=== PATIENT | female | born 1955 | race Caucasian/White ===

== ENCOUNTER 2018-12-04 10:27 | Outpatient (CLI) | payer OTHER ==
[2018-12-04 11:38] LABS: WHITE BLOOD COUNT 6.9 x10^3/uL (4.8-10.8)
[2018-12-04 11:39] LABS: BASOPHILS % (AUTO) 0.7 %; EOSINOPHILS # (AUTO) 0.1 10^3/uL (0.0-0.7); EOSINOPHILS % (AUTO) 1.7 %; HGB - HEMOGLOBIN 14.1 g/dL (12.0-16.0); LYMPHOCYTES # (AUTO) 3.1 10^3/uL (1.5-3.5); LYMPHOCYTES % (AUTO) 45.4 %; MEAN CORPUSCULAR HEMOGLOBIN 34.1 pg (27.0-31.0); MEAN CORPUSCULAR HGB CONC 34.7 g/dL (32.0-36.0); MEAN CORPUSCULAR VOLUME 98.4 fL (81.0-99.0); MEAN PLATELET VOLUME 6.8 fL (7.9-10.8); MONOCYTES # (AUTO) 0.7 10^3/uL (0.0-1.0); MONOCYTES % (AUTO) 9.6 %; NEUTROPHILS # (AUTO) 2.9 10^3/uL (1.5-6.6); NEUTROPHILS % (AUTO) 42.6 %; PLT - PLATELET COUNT 250 10^3/uL (130-450); RED BLOOD COUNT 4.13 10^6/uL (4.20-5.40)
[2018-12-04 12:03] LABS: ALBUMIN 4.5 g/dL (3.2-5.5); ALBUMIN/GLOBULIN RATIO 1.5 (1.0-2.2); ALKALINE PHOSPHATASE 56 IU/L (42-121); ALT ALANINE AMINOTRANSFERASE 22 IU/L (10-60); AST ASPARTATE AMINOTRANSFERASE 20 IU/L (10-42); BILIRUBIN,TOTAL 0.8 mg/dL (0.2-1.0); BUN - BLOOD UREA NITROGEN 18 mg/dL (6-20); CALCIUM 9.8 mg/dL (8.5-10.3); CARBON DIOXIDE - CO2 25 mmol/L (21-32); CHLORIDE 100 mmol/L (101-111); CHOL/HDL RATIO 4.8 (<4.4); CHOLESTEROL 240 mg/dL; CREATININE 0.9 mg/dL (0.4-1.0); GFR - MDRD 63 (>89); GLUCOSE 110 mg/dL (70-100); HDL CHOLESTEROL 50 mg/dL; LDL CHOLESTEROL,CALCULATED 144 mg/dL; LDL/HDL RATIO 2.9 (<4.4); SODIUM 139 mmol/L (135-145); TOTAL PROTEIN 7.6 g/dL (6.7-8.2); VLDL CHOLESTEROL 46 mg/dL
== END 2018-12-04 10:28 | disposition home or self-care (01) ==
LOC: LAB 10:27
PROVIDERS: ATTEND Nurse Practitioner
DX: Z13.228 Encounter for screening for other metabolic disorders (principal); Z13.29 Encounter for screening for other suspected endocrine disorder; Z13.220 Encounter for screening for lipoid disorders; I10 Essential (primary) hypertension
CPT/HCPCS: 36415; 80053; 80061; 83721; 84443; 85025

== ENCOUNTER 2020-11-11 15:14 | Outpatient (CLI) | payer MEDICARE, OTHER | END 2020-11-11 15:15 | disposition home or self-care (01) | LOC: COV 15:14 | PROVIDERS: ATTEND Surgery | DX: Z01.812 Encounter for preprocedural laboratory examination (principal); R13.10 Dysphagia, unspecified; R19.5 Other fecal abnormalities; Z20.822 Contact with and (suspected) exposure to COVID-19 ==

== ENCOUNTER 2020-11-16 08:19 | Day surgery (SDC) | payer MEDICARE, OTHER ==
[2020-11-16] MEDS ORDERED: LACTATED RINGERS 1,000 ML IV ONE ×2 (08:52→10:47)
[2020-11-16] MEDS ORDERED: BENZOCAINE/TETRACAINE/BUTAMBEN 20 GM ONE (09:27)
[2020-11-16] MEDS ORDERED: LIDO GARGLE 30 ML BOTTLE ONE (09:27)
[2020-11-16] MEDS ORDERED: MIDAZOLAM 2 MG/2 ML VIAL ONE ×3 (09:33→10:04)
[2020-11-16] MEDS ORDERED: fentaNYL 250 MCG/5 ML VIAL ONE (09:33)
[2020-11-16] MEDS ORDERED: ONDANSETRON 4 MG/2 ML VIAL ONE (09:34)
[2020-11-16] MEDS ORDERED: LIDO GARGLE 30 ML BOTTLE PO ONE (09:54)
[2020-11-16] MEDS ORDERED: BENZOCAINE/TETRACAINE/BUTAMBEN 20 GM TOP ONE (09:54)
[2020-11-16 11:14] VITALS: BP 113/73
== END 2020-11-16 08:20 | disposition home or self-care (01) ==
LOC: SDS 08:19
PROVIDERS: ATTEND Surgery
PROC: 0DBP8ZX Excision of Rectum, Via Natural or Artificial Opening Endoscopic, Diagnostic (ICD-10-PCS; principal; 2020-11-16 10:00)
DX: K62.1 Rectal polyp (principal); K57.30 Diverticulosis of large intestine without perforation or abscess without bleeding; K44.9 Diaphragmatic hernia without obstruction or gangrene; K22.8 Other specified diseases of esophagus; I10 Essential (primary) hypertension; M47.816 Spondylosis without myelopathy or radiculopathy, lumbar region
CPT/HCPCS: 43235; 45380; A9270; J3010; J7120

== ENCOUNTER 2021-03-17 13:52 | Outpatient (CLI) | payer MEDICARE, OTHER | END 2021-03-17 13:53 | disposition home or self-care (01) | LOC: COV 13:52 | PROVIDERS: ATTEND Nurse Practitioner Acute Care | DX: Z01.812 Encounter for preprocedural laboratory examination (principal); Z20.822 Contact with and (suspected) exposure to COVID-19 ==

== ENCOUNTER 2021-09-08 12:41 | Outpatient (CLI) | payer MEDICARE, OTHER ==
[2021-09-08 12:56] LABS: BASOPHILS # (AUTO) 0.1 10^3/uL (0.0-0.1); BASOPHILS % (AUTO) 1.1 %; EOSINOPHILS # (AUTO) 0.1 10^3/uL (0.0-0.7); EOSINOPHILS % (AUTO) 0.9 %; HCT - HEMATOCRIT 39.7 % (37.0-47.0); HGB - HEMOGLOBIN 14.1 g/dL (12.0-16.0); LYMPHOCYTES # (AUTO) 2.3 10^3/uL (1.5-3.5); LYMPHOCYTES % (AUTO) 40.5 %; MEAN CORPUSCULAR HEMOGLOBIN 34.6 pg (27.0-31.0); MEAN CORPUSCULAR HGB CONC 35.5 g/dL (32.0-36.0); MEAN CORPUSCULAR VOLUME 97.5 fL (81.0-99.0); MEAN PLATELET VOLUME 8.5 fL (7.9-10.8); MONOCYTES # (AUTO) 0.6 10^3/uL (0.0-1.0); MONOCYTES % (AUTO) 10.7 %; NEUTROPHILS # (AUTO) 2.6 10^3/uL (1.5-6.6); NEUTROPHILS % (AUTO) 46.6 %; PLT - PLATELET COUNT 228 10^3/uL (130-450); RED BLOOD COUNT 4.07 10^6/uL (4.20-5.40); RED CELL DISTRIBUTION WIDTH 13.3 % (12.0-15.0); WHITE BLOOD COUNT 5.6 x10^3/uL (4.8-10.8)
[2021-09-08 13:14] LABS: % IRON SATURATION 19 % (20-50); ALBUMIN 4.5 g/dL (3.2-5.5); ALBUMIN/GLOBULIN RATIO 1.5 (1.0-2.2); ALKALINE PHOSPHATASE 60 IU/L (42-121); ALT ALANINE AMINOTRANSFERASE 20 IU/L (10-60); AST ASPARTATE AMINOTRANSFERASE 23 IU/L (10-42); BILIRUBIN,TOTAL 0.6 mg/dL (0.2-1.0); BUN - BLOOD UREA NITROGEN 16 mg/dL (6-20); CALCIUM 9.7 mg/dL (8.5-10.3); CARBON DIOXIDE - CO2 27 mmol/L (21-32); CHLORIDE 99 mmol/L (101-111); CHOL/HDL RATIO 4.6 (<4.4); CHOLESTEROL 246 mg/dL; GFR - MDRD 55 (>89); GLUCOSE 109 mg/dL (70-100); HDL CHOLESTEROL 54 mg/dL; IRON 67 ug/dL (28-170); LDL CHOLESTEROL,CALCULATED 165 mg/dL; LDL/HDL RATIO 3.1 (<4.4); POTASSIUM 3.8 mmol/L (3.5-5.0); SODIUM 138 mmol/L (135-145); TOTAL IRON BINDING CAPACITY 358 ug/dL (250-450); TOTAL PROTEIN 7.6 g/dL (6.7-8.2); TRANSFERRIN 256 mg/dL (192-382); TRIGLYCERIDES 135 mg/dL; VLDL CHOLESTEROL 27 mg/dL
[2021-09-08 13:25] LABS: THYROID STIMULATING HORMONE 1.49 uIU/mL (0.34-5.60)
[2021-09-08 13:32] LABS: FERRITIN 97.1 ng/mL (11.0-306.8)
[2021-09-08 13:36] LABS: FOLATE 19.88 ng/mL (5.90 - >24.8)
== END 2021-09-08 12:42 | disposition home or self-care (01) ==
LOC: LAB 12:41
PROVIDERS: ATTEND Family Medicine
DX: D64.9 Anemia, unspecified (principal); Z78.0 Asymptomatic menopausal state; F41.8 Other specified anxiety disorders; M19.90 Unspecified osteoarthritis, unspecified site; I10 Essential (primary) hypertension
CPT/HCPCS: 36415; 80053; 80061; 82607; 82728; 82746; 83540; 83721; 84443; 84466; 85025

== ENCOUNTER 2023-09-12 11:23 | Outpatient (CLI) | payer MEDICARE, OTHER ==
[2023-09-12 11:52] LABS: BASOPHILS % (AUTO) 0.8 %; EOSINOPHILS % (AUTO) 0.8 %; HCT - HEMATOCRIT 37.5 % (37.0-47.0); HGB - HEMOGLOBIN 12.6 g/dL (12.0-16.0); LYMPHOCYTES # (AUTO) 1.9 10^3/uL (1.5-3.5); LYMPHOCYTES % (AUTO) 48.3 %; MEAN CORPUSCULAR HEMOGLOBIN 33.8 pg (27.0-31.0); MEAN CORPUSCULAR HGB CONC 33.6 g/dL (32.0-36.0); MEAN CORPUSCULAR VOLUME 100.5 fL (81.0-99.0); MEAN PLATELET VOLUME 8.7 fL (7.9-10.8); MONOCYTES # (AUTO) 0.4 10^3/uL (0.0-1.0); MONOCYTES % (AUTO) 10.2 %; NEUTROPHILS # (AUTO) 1.5 10^3/uL (1.5-6.6); NEUTROPHILS % (AUTO) 39.9 %; PLT - PLATELET COUNT 181 10^3/uL (130-450); RED BLOOD COUNT 3.73 10^6/uL (4.20-5.40); RED CELL DISTRIBUTION WIDTH 13.6 % (12.0-15.0); WHITE BLOOD COUNT 3.8 x10^3/uL (4.8-10.8)
[2023-09-12 12:12] LABS: ALBUMIN 4.2 g/dL (3.2-5.5); ALBUMIN/GLOBULIN RATIO 1.7 (1.0-2.2); ALKALINE PHOSPHATASE 48 IU/L (42-121); ALT ALANINE AMINOTRANSFERASE 16 IU/L (10-60); AST ASPARTATE AMINOTRANSFERASE 25 IU/L (10-42); BILIRUBIN,TOTAL 0.6 mg/dL (0.2-1.0); BUN - BLOOD UREA NITROGEN 17 mg/dL (6-20); CALCIUM 9.9 mg/dL (8.5-10.3); CARBON DIOXIDE - CO2 30 mmol/L (21-32); CHLORIDE 109 mmol/L (101-111); CHOL/HDL RATIO 3.9 (<4.4); CHOLESTEROL 182 mg/dL; CREATININE 0.8 mg/dL (0.6-1.3); GFR - MDRD 71 (>89); GLUCOSE 94 mg/dL (74-104); HDL CHOLESTEROL 47 mg/dL; LDL CHOLESTEROL,CALCULATED 104 mg/dL; LDL/HDL RATIO 2.2 (<4.4); SODIUM 142 mmol/L (135-145); TOTAL PROTEIN 6.7 g/dL (6.4-8.9); TRIGLYCERIDES 153 mg/dL (48-352); VLDL CHOLESTEROL 31 mg/dL
[2023-09-12 12:13] LABS: ESTIMATED AVERAGE GLUCOSE 77 mg/dL (70-100); HEMOGLOBIN A1c% 4.3 % (4.27-6.07)
[2023-09-12 12:20] LABS: THYROID STIMULATING HORMONE 1.56 uIU/mL (0.34-5.60)
== END 2023-09-12 11:24 | disposition home or self-care (01) ==
LOC: LAB 11:23
PROVIDERS: ATTEND Family Medicine
DX: I10 Essential (primary) hypertension (principal); K59.00 Constipation, unspecified; K44.9 Diaphragmatic hernia without obstruction or gangrene; M19.90 Unspecified osteoarthritis, unspecified site; R73.9 Hyperglycemia, unspecified
CPT/HCPCS: 36415; 80053; 80061; 83036; 83721; 84443; 85025

== ENCOUNTER 2024-03-01 18:55 | Emergency (ER) | payer MEDICARE, OTHER ==
--- NOTE | 2024-03-01 19:21 | ED Physician Documentation ---
History of Present Illness - Stated complaint Stated Complaint: L KNEE PX - Chief complaint Chief Complaint: Trauma Ext - Additonal information Additional information: Patient is a 68-year-old female presenting to the emergency department with left knee pain. Patient notes injury occurred earlier in January but now she has been trying to remain off of it until She was doing more walking today and when she returned home sitting on her couch and moved it suddenly she had severe excruciating pain. Per her it appears significantly more swollen. Patient has chronic knee problems she is unsure exactly but has never had surgery to bilateral knees. She has generalized osteoarthritis but does not take any medications other than hypertensive medications at home. She denies any numbness or tingling in her leg. She denies being fully extending or flexing her left knee due to significant pain and swelling. She did not take any pain medications before coming in but for the past few days has been taking naproxen.Patient notes earlier injury about 2-1/2 weeks ago occurred when she stepped out of the car and had sudden onset pain to her posterior left knee. She notes she was able to ambulate and did not come in for further evaluation at that time. PD PAST MEDICAL HISTORY - Past Medical History Past Medical History: Yes Cardiovascular: Hypertension - Past Surgical History Past Surgical History: Yes General: Hiatal hernia repair /[employer]: Breast reduction - Present Medications Home Medications: Ambulatory Orders Medication Instructions Recorded Confirmed Diclofenac Sodium [Voltaren 20 gm TP BID 7 Days #14 gm 03/01/24 Arthritis Pain] Lisinopril/Hydrochlorothiazide 1 each PO DAILY 03/01/24 03/01/24 [Zestoretic 20-12.5 mg Tablet] Meloxicam [Mobic] 7.5 mg PO BID 7 Days #14 tablet 03/01/24 - Allergies Allergies/Adverse Reactions: Allergies Allergy/AdvReac Type Severity Reaction Status Date / Time diphenhydramine Allergy Severe Rash Verified 03/01/24 18:59 [From Benadryl] ethylene oxide (gas) Allergy Severe Anaphylaxis Verified 03/01/24 18:59 iodine Allergy Intermediate Rash Verified 03/01/24 18:59 latex Allergy Intermediate Rash Verified 03/01/24 18:59 Penicillins Allergy Intermediate Rash Verified 03/01/24 18:59 - Social History Does the pt smoke?: No Smoking Status: Never smoker Does the pt drink ETOH?: No Does the pt have substance abuse?: No - Immunizations Immunizations are current?: Yes PD ED PE NORMAL - Vitals Vital signs reviewed: Yes - General General: Alert and oriented X 3 - HEENT HEENT: Atraumatic - Neck Neck: Supple, no meningeal sign - Cardiac Cardiac: RRR, No murmur, No gallop, No rub - Respiratory Respiratory: No respiratory distress, Clear bilaterally - Abdomen Abdomen: Normal bowel sounds, Soft, Non tender, Non distended - Female Female : Deferred - Derm Derm: Normal color, Other (No signs of abrasions burn wounds or erythema) - Extremities Extremities: No deformity, Other (Swelling noted to left knee with leg held in slight flexion. No significant erythema or warmth on examination compartments are soft and pulses are intact. Significantly decreased range of motion on examination of knee due to stiffness and pain and swelling. ) - Neuro Neuro: Alert and oriented X 3 Eye Opening: Spontaneous Motor: Obeys Commands Verbal: Oriented GCS Score: 15 Results - Vitals Vitals: Vital Signs - 24 hr 03/01/24 18:59 Temperature 36.5 C Heart Rate 90 Respiratory 16 Rate Blood Pressure 116/89 H O2 Saturation 10 L Oxygen O2 Source Room air - Rads (name of study) X-ray left knee Relevant Findings:: EMP independent interpretation of test PD Medical Decision Making - ED course Complexity details: reviewed old records, reviewed results ED course: Patient is a 68-year-old female presenting to the emergency department with left knee pain. Patient notes injury occurred earlier in January but now she has been trying to remain off of it until She was doing more walking today and when she returned home sitting on her couch and moved it suddenly she had severe excruciating pain. Per her it appears significantly more swollen. Normal cardiac lung sounds vital stable on arrival. Reproducible anterior left knee tenderness significant swelling and stiffness on examination. No obvious bruising erythema or warmth on examination. Pulses intact distally with sensation intact distally No displaced fractures. Moderate joint effusion. Internal derangement not excluded. Mild to moderate tricompartmental osteoarthritis. Kellgren-Gustavo scale of osteoarthritis: 2. Patient workup here in emergency department shows most likely ligament tear. Given concerning findings patient will be given orthopedic device for a knee immobilizer and held in flexion. Patient held at 10 degrees for most comfort and given walker. She has crutches at home and is agreeable with trying walker here. Instructed patient to elevate ice and rest. She was given meloxicam for swelling and pain control and told to hold off on naproxen and to try meloxicam for symptoms. Instructed patient to ice and elevate at home and given the follow-up number for orthopedics in the outpatient setting. Patient will call them on Saturday. She will return with any worsening pain swelling numbness tingling discoloration. Departure - Departure Disposition: , Self Care Clinical Impression: Effusion, left knee, Knee injury, Injury of lower leg Condition: Good Instructions: ED Meniscal Injury Knee Poss Follow-Up: GERARD KINNEY, [Physician No Access] - Comments: You are seen here in the emergency department for your left knee pain I suspect you most likely tore ligament and we given you a knee immobilizer and follow-up with orthopedics. Take anti-inflammatories as possible I have given you a walker please try to remain off of it or low weightbearing. Return with any discoloration worsening pain swelling numbness or tingling to your extremity. Take pain medications as prescribed to help with inflammation. Forms: PCP List
--- NOTE | 2024-03-01 19:55 | XRAY Report ---
PROCEDURE: Knee 4+V LT INDICATIONS: pain TECHNIQUE: 4 views of the knee(s) were acquired. COMPARISON: None. FINDINGS: Bones: No fractures or dislocations. No suspicious bony lesions. Tricompartmental joint space fer rowing with associated osteophytosis. Soft tissues: Moderate knee joint effusion. No suspicious soft tissue calcifications or masses. IMPRESSION: No displaced fractures. Moderate joint effusion. Internal derangement not excluded. Mild to moderate tricompartmental osteoarthritis. Kellgren-Gustavo scale of osteoarthritis: 2. Reviewed by: Ronald Avendaño MD on 03/01/2024 7:53 PM PDT Approved by: Ronald Avendaño MD on 03/01/2024 7:53 PM PDT Station ID: [id number]
[2024-03-01 21:33] VITALS: BP 136/96; O2SAT 99
== END 2024-03-01 21:29 | disposition home or self-care (01) ==
LOC: ED 18:55
DX: M25.462 Effusion, left knee (principal); S89.92XA Unspecified injury of left lower leg, initial encounter; X58.XXXA Exposure to other specified factors, initial encounter; I10 Essential (primary) hypertension
CPT/HCPCS: 99283